=== PATIENT | female | born 1975 | race Two or more races ===

== ENCOUNTER 2017-02-12 17:20 | Emergency (ER) | payer SELFPAY ==
[~2017-02-12] VITALS: Ht 165.1 cm; Wt 73.5 kg
[~2017-02-12 17:20] MED LIST: LORA10TA64 PO; MOME17SP NS
--- NOTE | 2017-02-12 17:44 | NUR ---
PT WAS EVALUATED BY DR WORKMAN. PT WAS D/C TO HOME. D/C INSTRUCTIONS GIVEN TO THE PT.
[2017-02-12 17:45] VITALS: BP 134/78
== END 2017-02-12 17:46 | disposition home or self-care (01) ==
LOC: ER 17:23
DX: M26.621 Arthralgia of right temporomandibular joint (principal); Z88.0 Allergy status to penicillin
CPT/HCPCS: 99282; A4663

== ENCOUNTER 2018-04-06 16:56 | Emergency (ER) | payer MEDICAID ==
[~2018-04-06] VITALS: Ht 165.1 cm; Wt 73.5 kg
[~2018-04-06 16:56] MED LIST changes: -MOME17SP NS
--- NOTE | 2018-04-06 19:18 | NUR ---
RECEIVED REPORT FROM DAY SHIFT NURSE, GLADYS TORRES. INTERVIEWED PATIENT. PT STATES BEING HERE FOR SEASONAL ALLERGY CONCERNS. PT HAS EYE AND EAR IRRITATION AND NASAL CONGESTION. PATIENT IN BED. SHE HAS BEEN EXPERIENCING THESE SYMPTOMS FOR 1 MONTH. NO SIGNS/SYMPTOMS OF DISTRESS WITNESSED BY NURSE OR EXPRESSED BY PT.
--- NOTE | 2018-04-06 19:33 | NUR ---
Patient discharged to home in stable conditon. Written and verbal after care instructions given. Patient verbalizes understanding of instructions. Patient able to ambulate unassisted with steady gait. Patient left with all personal belongings.
[2018-04-06 19:40] VITALS: BP 124/76
== END 2018-04-06 19:33 | disposition home or self-care (01) ==
LOC: ER 16:58
DX: J30.9 Allergic rhinitis, unspecified (principal); Z88.0 Allergy status to penicillin; Z90.49 Acquired absence of other specified parts of digestive tract; Z79.899 Other long term (current) drug therapy
CPT/HCPCS: A4663

== ENCOUNTER 2019-06-09 05:34 | Emergency (ER) | payer MEDICAID ==
[~2019-06-09] VITALS: Ht 165.1 cm; Wt 77.1 kg
[2019-06-09] MEDS ORDERED: EPINEPHRINE 1:10,000 1 MG/10 ML DISP.SYRIN MC ONE (05:37)
[2019-06-09] MEDS ORDERED: ONDANSETRON 4 MG/2 ML VIAL IV ONE ×2 (06:00→06:45)
[2019-06-09] MEDS ORDERED: IV NORMAL SALINE 1000 ML BAG IV ONE ×2 (06:00→06:45)
[2019-06-09] MEDS ORDERED: ONDANSETRON 4 MG/2 ML VIAL ONE ×2 (06:00→06:49)
[2019-06-09 06:04] LABS: BASOPHILS % (AUTO) 0.4 % (0.0-2.0); EOSINOPHILS # (AUTO) 0.2 K/uL (0.0-0.7); EOSINOPHILS % (AUTO) 1.5 % (0.0-7.0); HEMOGLOBIN 14.5 g/dL (10.9-14.3); LYMPHOCYTES # (AUTO) 0.6 K/uL (20.0-40.0); LYMPHOCYTES % (AUTO) 5.7 % (20.5-51.5); MEAN CORPUSCULAR HEMOGLOBIN 30.6 uug (24.7-32.8); MEAN CORPUSCULAR HGB CONC 34 g/dL (32.3-35.6); MEAN CORPUSCULAR VOLUME 90.8 fL (75.5-95.3); MONOCYTES # (AUTO) 0.5 K/uL (2.0-10.0); MONOCYTES % (AUTO) 4.7 % (0.0-11.0); NEUTROPHILS # (AUTO) 9.4 K/uL (1.8-8.9); NEUTROPHILS % (AUTO) 87.7 % (38.5-71.5); PLATELET COUNT (AUTO) 165 K/uL (179-408); RED BLOOD CELL COUNT(AUTO) 4.73 MIL/uL (3.63-4.92); WHITE BLOOD COUNT (AUTO) 10.7 K/uL (3.8-11.8)
[2019-06-09 06:18] LABS: BILIRUBIN,DIRECT 0.1 mg/dL (0.0-0.2); BILIRUBIN,TOTAL 0.7 mg/dL (0.2-1.0); TOTAL PROTEIN, SERUM 8.3 g/dL (6.4-8.2)
--- NOTE | 2019-06-09 06:38 | NUR ---
Dr. Morataya at bedside for MSE.
[2019-06-09] MEDS ORDERED: ATROPINE SULFATE 1 MG/10 ML DISP.SYRIN IV ONE (06:45)
[2019-06-09] MEDS ORDERED: diphenhydrAMINE 50 MG/1 ML VIAL IV ONE (06:45)
[2019-06-09] MEDS ORDERED: diphenhydrAMINE 50 MG/1 ML VIAL ONE (06:49)
[2019-06-09] MEDS ORDERED: ATROPINE SULFATE 1 MG/10 ML DISP.SYRIN ONE (06:50)
--- NOTE | 2019-06-09 06:59 | NUR ---
Report given to Ramin phelps.
--- NOTE | 2019-06-09 07:47 | NUR ---
PT WAS D/C'd TO HOME. D/C INSTRUCTIONS GIVEN TO THE PT.
[2019-06-09 07:48] VITALS: BP 125/74
== END 2019-06-09 07:49 | disposition home or self-care (01) ==
LOC: ER 05:36
DX: R11.2 Nausea with vomiting, unspecified (principal); R19.7 Diarrhea, unspecified; Z90.49 Acquired absence of other specified parts of digestive tract; Z88.0 Allergy status to penicillin; Z79.899 Other long term (current) drug therapy
CPT/HCPCS: 36415; 80048; 80076; 84702; 85025; 96361; 96374; 96375; 96376; 99283; J0171; J0461; J1200; J2405 ×2; A4663; J7030